=== PATIENT | male | born 1975 | race African-American/Black ===

== ENCOUNTER 2021-06-09 22:02 | Inpatient (IN) | payer OTHER ==
[~2021-06-09] VITALS: Ht 177.8 cm; Wt 49.4 kg
[2021-06-09] MEDS ORDERED: MAGNESIUM/ALUMINUM HYDROXIDE/SIMETHICONE 30ML UDC PO STA (22:45)
[2021-06-09] MEDS ORDERED: VISCOUS LIDOCAINE 2% 15 ML UDC PO STA (22:45)
[2021-06-09 23:38] LABS: CHLORIDE 101 mEq/L (98-107)
[2021-06-09] MEDS ORDERED: PANTOPRAZOLE SODIUM 40 MG/VIAL IV NR (23:45)
[2021-06-10 00:39] LABS: BASOPHILS % 0.4 % (0.0-2.0); LYMPHOCYTES % 13.2 % (20.0-50.0); MEAN CORPUSCULAR HEMOGLOBIN 23.2 pg (28.0-32.0); MEAN CORPUSCULAR VOLUME 73.9 fL (80.0-94.0); MEAN PLATELET VOLUME 7.6 fl (7.4-10.4); MONOCYTES % 4.8 % (2.0-8.0); NEUTROPHILS % 81.6 % (40.0-76.0); PLATELET 506 x1000/uL (130-400); RED BLOOD CELL COUNT 2.51 mill/uL (4.7-6.1); RED CELL DISTRIBUTION WIDTH 23.9 % (11.6-14.6)
[2021-06-10 00:43] LABS: HEMATOCRIT. 18.5 % (42.0-52.0); HEMOGLOBIN. 5.8 g/dL (14.0-18.0)
[2021-06-10 05:42] LABS: PLATELET ESTIMATE INCREASED
[2021-06-10] MEDS ORDERED: ONDANSETRON HCL 4MG/2ML INJ IV PRN (09:30)
[2021-06-10 10:06] LABS: BASOPHILS % 0.3 % (0.0-2.0); EOSINOPHILS % 0.1 % (0.0-5.0); LYMPHOCYTES % 14.3 % (20.0-50.0); MEAN CORPUSCULAR HEMOGLOBIN 24.6 pg (28.0-32.0); MEAN CORPUSCULAR VOLUME 76.8 fL (80.0-94.0); MEAN PLATELET VOLUME 7.3 fl (7.4-10.4); MONOCYTES % 7.6 % (2.0-8.0); NEUTROPHILS % 77.7 % (40.0-76.0); PLATELET 409 x1000/uL (130-400); RED BLOOD CELL COUNT 2.87 mill/uL (4.7-6.1); RED CELL DISTRIBUTION WIDTH 22.6 % (11.6-14.6)
[2021-06-10 10:14] LABS: CHLORIDE 102 mEq/L (98-107)
[2021-06-10] MEDS: PIPERACILLIN/TAZ 3.375G PREMIX 50 ML IV SCH ×2 (10:56→14:09)
[2021-06-10] MEDS: PANTOPRAZOLE SODIUM 40 MG/VIAL IV SCH ×2 (11:17→21:00)
[2021-06-10] MEDS ORDERED: HYDROCODONE/ACETAMINOPHEN 5/325MG TABLET PO PRN (12:15)
[2021-06-10] MEDS ORDERED: NALOXONE HCL 0.4MG/ML VIAL IV PRN (12:15)
[2021-06-10] MEDS: SUCRALFATE 1G TABLET PO SCH ×3 (12:17→21:00)
[2021-06-10 15:53] LABS: CLARITY URINE CLEAR (CLEAR); COLOR URINE YELLOW (YELLOW); KETONES URINE NEGATIVE (NEGATIVE); LEUKOCYTE ESTERASE URINE NEGATIVE (NEGATIVE); NITRITE URINE NEGATIVE (NEGATIVE); OCCULT BLOOD URINE NEGATIVE (NEGATIVE); PH URINE 7.5 (4.5-8.0); PROTEIN URINE TRACE (NEGATIVE); SPECIFIC GRAVITY URINE 1.019 (1.005-1.030)
[2021-06-10 15:56] LABS: METHADONE URINE SCREEN NEGATIVE (NEGATIVE)
[2021-06-10 15:57] LABS: *AMPHETAMINES SCREEN URINE NEGATIVE (NEGATIVE); *BARBITURATES SCREEN URINE NEGATIVE (NEGATIVE); *BENZODIAZEPINES SCREEN URINE NEGATIVE (NEGATIVE); *COCAINE SCREEN URINE NEGATIVE (NEGATIVE); CANNABINOID URINE SCREEN PRESUMTIVE POSITIVE (NEGATIVE); OPIATES URINE SCREEN NEGATIVE (NEGATIVE); PHENCYCLIDINE URINE SCREEN NEGATIVE (NEGATIVE)
[2021-06-10 20:35] VITALS: BP 129/76
[2021-06-10] MEDS: PIPERACILLIN/TAZOBACTAM 3.375G in DEXT 5% WATER 50ML IV SCH (22:00)
[2021-06-11] VITALS: BP 112/70
[2021-06-11 04:00] VITALS: BP 114/79
[2021-06-11 05:57] LABS: CHLORIDE 102 mEq/L (98-107)
[2021-06-11] MEDS: SUCRALFATE 1G TABLET PO SCH ×4 (06:00→22:21)
[2021-06-11] MEDS: PIPERACILLIN/TAZOBACTAM 3.375G in DEXT 5% WATER 50ML IV SCH ×3 (06:00→22:21)
[2021-06-11 06:05] LABS: TOTAL IRON BINDING CAPACITY 287 ug/dL (250-450)
[2021-06-11 06:09] LABS: BASOPHILS % 0.1 % (0.0-2.0); EOSINOPHILS % 0.1 % (0.0-5.0); HEMATOCRIT. 27.7 % (42.0-52.0); HEMOGLOBIN. 8.8 g/dL (14.0-18.0); MEAN CORPUSCULAR HEMOGLOBIN 25.4 pg (28.0-32.0); MEAN CORPUSCULAR VOLUME 79.4 fL (80.0-94.0); MONOCYTES % 8.1 % (2.0-8.0); NEUTROPHILS % 82.7 % (40.0-76.0); PLATELET 419 x1000/uL (130-400); RED BLOOD CELL COUNT 3.49 mill/uL (4.7-6.1); RED CELL DISTRIBUTION WIDTH 21.8 % (11.6-14.6)
[2021-06-11 06:14] LABS: FOLIC ACID (FOLATE) SERUM 13.4 ng/mL (>5.38)
[2021-06-11 08:00] VITALS: BP 125/85
[2021-06-11] MEDS: IRON SUCROSE COMPLEX 100 MG/5 ML ML IV SCH (10:35)
[2021-06-11] MEDS: PANTOPRAZOLE SODIUM 40 MG/VIAL IV SCH ×2 (10:36→22:22)
[2021-06-11 12:00] VITALS: BP 126/80
[2021-06-11] MEDS ORDERED: IOHEXOL-300 100 ML BOTTLE ONE (12:42)
[2021-06-11 16:00] VITALS: BP 118/79
[2021-06-11 20:00] VITALS: BP 110/74
[2021-06-12] VITALS: BP 104/77
[2021-06-12 04:00] VITALS: BP 118/76
[2021-06-12] MEDS: PIPERACILLIN/TAZOBACTAM 3.375G in DEXT 5% WATER 50ML IV SCH (05:16)
[2021-06-12] MEDS: SUCRALFATE 1G TABLET PO SCH ×2 (06:15→10:15)
[2021-06-12 07:21] LABS: INR 1.1; PARTIAL THROMBOPLASTIN TIME 31.1 sec (23.4-31.0); PROTHROMBIN TIME 11.7 sec (9.6-11.0)
[2021-06-12 07:27] LABS: CHLORIDE 102 mEq/L (98-107)
[2021-06-12 08:54] LABS: BASOPHILS % 0.3 % (0.0-2.0); EOSINOPHILS % 0.4 % (0.0-5.0); HEMATOCRIT. 25.8 % (42.0-52.0); HEMOGLOBIN. 8.2 g/dL (14.0-18.0); LYMPHOCYTES % 15.4 % (20.0-50.0); MEAN CORPUSCULAR HEMOGLOBIN 25.3 pg (28.0-32.0); MEAN CORPUSCULAR VOLUME 79.3 fL (80.0-94.0); MEAN PLATELET VOLUME 7.9 fl (7.4-10.4); MONOCYTES % 7.1 % (2.0-8.0); NEUTROPHILS % 76.8 % (40.0-76.0); PLATELET 391 x1000/uL (130-400); RED BLOOD CELL COUNT 3.25 mill/uL (4.7-6.1); RED CELL DISTRIBUTION WIDTH 22.6 % (11.6-14.6)
[2021-06-12] MEDS: IRON SUCROSE COMPLEX 100 MG/5 ML ML IV SCH (10:14)
[2021-06-12] MEDS: PANTOPRAZOLE SODIUM 40 MG/VIAL IV SCH (10:15)
[2021-06-12] MEDS ORDERED: DOCU250C14 MT (12:12)
[2021-06-12] MEDS ORDERED: FERR325T6 MT (12:12)
[2021-06-12] MEDS ORDERED: OMEP40CA20 MT (12:12)
[2021-06-12 15:03] VITALS: BP 118/78
== END 2021-06-12 16:27 | disposition home or self-care (01) | DRG 254 ==
LOC: ER 22:02 → MICUSO 06-10 01:18 → 3WST 06-10 15:44 → MICUSO 06-10 15:50 → 8WST 06-10 20:00
PROVIDERS: ADMIT Internal Medicine; ATTEND Internal Medicine
PROC: 30233N1 Transfusion of Nonautologous Red Blood Cells into Peripheral Vein, Percutaneous Approach (ICD-10-PCS; principal; 2021-06-10)
DX: K92.1 Melena (principal); E43 Unspecified severe protein-calorie malnutrition; C16.9 Malignant neoplasm of stomach, unspecified; C78.7 Secondary malignant neoplasm of liver and intrahepatic bile duct; D62 Acute posthemorrhagic anemia; D72.829 Elevated white blood cell count, unspecified; K52.9 Noninfective gastroenteritis and colitis, unspecified; M54.50 Low back pain, unspecified; Z20.822 Contact with and (suspected) exposure to COVID-19; Z53.20 Procedure and treatment not carried out because of patient's decision for unspecified reasons; F12.90 Cannabis use, unspecified, uncomplicated; G89.29 Other chronic pain; I10 Essential (primary) hypertension; Z79.891 Long term (current) use of opiate analgesic; Z87.11 Personal history of peptic ulcer disease; Z90.3 Acquired absence of stomach [part of]; Z79.899 Other long term (current) drug therapy; Z68.1 Body mass index [BMI] 19.9 or less, adult
CPT/HCPCS: 36415; 74177; 80048; 80053; 80305; 81003; 82270; 82607; 82728; 82746; 83540; 83550; 85025; 85044; 86850; 86900; 86920; 87426; 99291; C9113; J2543; J7040; J7060; P9016; Q9967